=== PATIENT | female | born 1960 | race Caucasian/White ===

== ENCOUNTER 2016-12-27 06:33 | Day surgery (SDC) | payer BC ==
[2016-12-23 13:13] LABS: A/G RATIO 1.1 (0.7-1.9); ALKALINE PHOSPHATASE 83 U/L (45-117); BUN (BLOOD UREA NITROGEN) 9 MG/DL (6-23); CALCIUM, SERUM 9.2 MG/DL (8.5-10.4); CHLORIDE, SERUM 105 MMOL/L (96-112); CO2 (CARBON DIOXIDE) 31 MMOL/L (24-34); CREATININE 0.42 MG/DL (0.55-1.02); GFR AFRICAN AMERICAN 132 ML/MIN (>=60); GFR NON AFRICAN AMERICAN 114 ML/MIN (>=60); GLOBULIN 3.5 G/DL (2.5-4.1); GLUCOSE, SERUM 103 MG/DL (60-99); POTASSIUM, SERUM 4.6 MMOL/L (3.5-5.3); SGOT(AST) 15 U/L (5-40); SGPT(ALT) 27 U/L (5-65); SODIUM, SERUM 141 MMOL/L (135-148); TOTAL BILIRUBIN 0.3 MG/DL (0-1.2); TOTAL PROTEIN 7.5 G/DL (6.0-8.5)
--- NOTE | ~2016-12-27 | OP ---
Record Of [place] [address] [place]. [address] NAME: ERICA JUNIOR : 58 STATUS : [facility] PAT#: [id number] AGE: 56 ADM/REG DATE : 12/27/16 MR#: [id number] REPORT SERV DATE: 12/28/16 DICTATED BY: ODELL BADILLO DATE: 12/28/16 REPORT STATUS : Draft TRANSCRIBED BY: MODL DATE: 12/28/16 DATE OF PROCEDURE: 12/27/2016 PREOPERATIVE DIAGNOSES: 1. Biliary sludge. 2. Gallbladder polyps. 3. Chronic cholecystitis. POSTOPERATIVE DIAGNOSES: 1. Biliary sludge. 2. Gallbladder polyps. 3. Chronic cholecystitis. PROCEDURE: Laparoscopic cholecystectomy. RESIDENT: Harrison Hanna MD. ANESTHESIA: General. ESTIMATED BLOOD LOSS: Less than 5 mL. IV FLUIDS: 800 mL of crystalloid. SPECIMEN: Gallbladder. DRAINS: None. COMPLICATIONS: None. FINDINGS: The liver was healthy in appearance. There are nodules noted, noncirrhotic. The gallbladder had omental adhesions to it, and a thickened peritoneum consistent with chronic cholecystitis. INDICATIONS FOR PROCEDURE: This is a 56-year-old female who has been having right upper quadrant pain, postprandial and at night. The patient had a workup that revealed the patient to have gallbladder sludge and polyps noted. Therefore, the above procedure was offered to the patient. Risks, benefits, and alternatives were explained. The patient expressed clear verbal understanding and wished to proceed forward with this elective procedure. DESCRIPTION OF PROCEDURE: After informed consent was obtained, the patient was taken back to the operative theater. The patient was laid on the operating room table in the supine position. The patient was given adequate analgesia and anesthesia and successfully endotracheally intubated. The surgical site was then prepped and draped in standard fashion. A formal time-out was then performed. Appropriate preoperative antibiotics had been administered. All present in the operating room were in agreement. We elected to Record Of [address] [place]. [address] NAME: ERICA JUNIOR : 58 STATUS : [facility] PAT#: [id number] AGE: 56 ADM/REG DATE : 12/27/16 MR#: [id number] REPORT SERV DATE: 12/28/16 DICTATED BY: ODELL BADILLO BRIDGEPORT DATE: 12/28/16 REPORT STATUS : Draft TRANSCRIBED BY: MODL DATE: 12/28/16 proceed forward with the procedure. We began by administering local anesthetic periumbilically. We then made an infraumbilical curvilinear incision. We then dissected down with electrocautery and blunt dissection. Thus, the anterior abdominal fascia raised and elevated using electrocautery to incise the fascia in a vertical fashion. These blunt dissection was used to gain entrance into the abdominal cavity. We then placed a stay suture in a [id number]-wnkwv fashion with a 0 Vicryl on a UR-6, leaving the stay suture in place. We then placed a 10 mm trocar into the infraumbilical entrance site, connected it for insufflation. Pneumoperitoneum of 15 mmHg was achieved, the patient tolerated this well. Quick laparoscope instrument was used in the abdominal cavity. A quick surveillance revealed no blood and no bile. No injury to the omentum, small bowel, or mesentery in access into the abdominal cavity. We then noted the liver was healthy in appearance. No nodules, no masses, noncirrhotic. Gallbladder was seen to be slightly distended with thickened peritoneum and some omental adhesions consistent with chronic cholecystitis. We then placed a 10 mm trocar in the epigastrium and two 5 mm trocars in the right upper quadrant. Gallbladder was grasped, retracted cephalic. A combination of electrocautery and blunt dissection were then used to dissect the omental adhesions off the gallbladder. We then dissected out the cystic duct and cystic artery in circumferential manner. Once the critical view of the cystic duct, gallbladder, infundibulum junction was identified as well as cystic artery, circumferentially seen with liver plate seen behind it. We then placed two clips on the stay side and one clip on the go side. The cystic artery and cystic duct was sharply transected between these clips. We then used electrocautery and removed the gallbladder from the liver bed. We then grasped it with otmnyd-wp-ltr clamp and removed it through the epigastric port site and passed off the surgical field. We then reviewed the gallbladder fossa. Electrocautery was used to obtain hemostasis. I reviewed the gallbladder fossa for an extended period of time and noted that the hemostasis had been achieved. There was no bile leakage noted. We then injected local anesthetic, infra and suprahepatically. We then removed our remaining trocars under direct laparoscopic vision. No bleeding noted from the anterior abdominal wall. We then desufflated the patient's abdomen with final removal of final trocar. Once the abdomen was adequately desufflated, the stay suture that I had previously placed in a [id number]-[id number]-ttflt fashion was then tied down reapproximating the fascial defect. The fascia was reapproximated very well. The skin edges of all skin incision sites were reapproximated with simple interrupted subcuticular stitch fashion. Skin is reapproximated very well. Hemostasis noted to be achieved. Sterile dressings were applied. Sterile drapes broken down. The patient was reversed of anesthesia and successfully extubated. The patient was awake. Vital signs are stable. The patient was transferred to recovery in stable condition. DICTATED BY: MD NADEEM Landaverde/KVNG Odell Badillo MD / [id number] Record Of Operation [address] [address] NAME: ERICA JUNIOR : 58 STATUS : [facility]#: [id number] AGE: 56 ADM/REG DATE : 12/27/16 MR#: [id number] REPORT SERV DATE: 12/28/16 DICTATED BY: ODELL BADILLO BRIDGEPORT DATE: 12/28/16 REPORT STATUS : Draft TRANSCRIBED BY: KVNG DATE: 12/28/16 CC: MD Celia Gonzalez M.D.
[~2016-12-27 06:33] MED LIST: ALLEGRA PO; ASABAYER PO; BETAPACE80 PO; CO Q-10100 MG PO; CYANO1000T PO; D100 PO; DIGITEK0.125 MG PO; DRONED400 PO; FISH-EPA1000 MG PO; FORTAMET500 MG PO; JANUVIA100 MG PO; NEXIUM40 PO; THERGRANM PO; TOPXL50 PO; VITAMIN B-625 MG PO; VITAMIN D31000 UNIT PO
== END 2016-12-27 14:39 | disposition home or self-care (01) ==
LOC: SDC 06:33
PROVIDERS: Surgery
PROC: 0FT44ZZ Resection of Gallbladder, Percutaneous Endoscopic Approach (ICD-10-PCS; principal; 2016-12-27 07:45)
DX: K80.10 Calculus of gallbladder with chronic cholecystitis without obstruction (principal); K82.4 Cholesterolosis of gallbladder; I10 Essential (primary) hypertension; E11.9 Type 2 diabetes mellitus without complications; K82.9 Disease of gallbladder, unspecified; E04.0 Nontoxic diffuse goiter; E78.5 Hyperlipidemia, unspecified; M79.7 Fibromyalgia; G47.33 Obstructive sleep apnea (adult) (pediatric); I48.91 Unspecified atrial fibrillation; Z88.2 Allergy status to sulfonamides; Z90.49 Acquired absence of other specified parts of digestive tract; Z88.8 Allergy status to other drugs, medicaments and biological substances
CPT/HCPCS: 80053; 82962; 85014; 85018; 88304; 93005; A9270-GY; J0690; J1885; J2250; J2405; J2710; J3010